=== PATIENT | female | born 1960 | race Caucasian/White ===

== ENCOUNTER 2023-04-14 04:05 | Day surgery (SDC) | payer OTHER ==
[2023-04-13 10:52] VITALS: BMI 22.8
[2023-04-14 09:16] VITALS: TEMP 98.6
[2023-04-14 10:10] VITALS: BP 120/53; PULSE 57; RESP 14
== END 2023-04-14 10:10 | disposition home or self-care (01) ==
LOC: JASU-ENDO 04:05
PROVIDERS: ATTEND Internal Medicine Gastroenterology
PROC: 0DBM8ZX Excision of Descending Colon, Via Natural or Artificial Opening Endoscopic, Diagnostic (ICD-10-PCS; principal; 2023-04-14 09:00)
DX: Z12.11 Encounter for screening for malignant neoplasm of colon (principal); K63.5 Polyp of colon; K63.89 Other specified diseases of intestine; K64.8 Other hemorrhoids; Z86.010 Personal history of colon polyps